=== PATIENT | female | born 1965 | race Two or more races ===

== ENCOUNTER → 2024-10-03 | Outpatient (CLI) | payer MEDICAID, SELFPAY ==
--- NOTE | 2024-10-03 09:25 | XR_ITS ---
Examination: Liver Elastography ultrasound examination Exam date and time: October 03, 2024 0937 hours INDICATIONS: Diagnosis fatty liver TECHNIQUE AND FINDINGS: Grayscale sonographic images liver with calculation tissue stiffness average Liver 14.4 cm fatty infiltration Normal hepatopedal portal venous flow Patent IVC Incidental note 18 mm gallstone Tissue stiffness average 1.1 m/s in the normal range IMPRESSION: Normal liver tissue stiffness average
== END | disposition home or self-care (01) ==
PROVIDERS: Referring Provider Internal Medicine; Visit Provider Internal Medicine
DX: K76.0 Fatty (change of) liver, not elsewhere classified (principal)
CPT/HCPCS: 76981